=== PATIENT | female | born 1990 | race African-American/Black ===

== ENCOUNTER 2018-06-22 14:47 | Outpatient (CLI) | payer OTHER ==
--- NOTE | 2018-06-22 18:52 | ULT ---
TRANSABDOMINAL AND TRANSVAGINAL PELVIC ULTRASOUND: HISTORY: Incomplete . Evaluate for ectopic . COMPARISON: None. TECHNIQUE: Real-time, chávez-scale, color Doppler, and spectral analysis of the pelvis performed with a transabdo yasmin and transvaginal approach. FINDINGS: The uterus measures 9.6 x 6.3 x 7.8 cm. There are multiple calcified uterine fibroids. There is an empty gestational sac with a mean sac diameter of 2.87 cm. Adjacent to this, there are t wo separate cystic areas. There is a septated cyst within the right ovary, measuring 1.6 x 1.7 cm. No free fluid in the pelvis. IMPRESSION: 1. Findings diagnostic of failure with an empty gestational sac without an embryo with a m alan sac diameter of 2.87 cm. Adjacent cystic structure within the myometrium. This may reflect a re sorbing subchorionic hemorrhage. 2. Likely septated cyst of the right ovary, measuring up to 1.9 cm. 3. Multiple calcified uterine fibroids. POS: [facility]
== END 2018-06-22 14:48 | disposition home or self-care (01) ==
LOC: ULT 14:47
PROVIDERS: ATTEND Nurse Practitioner
DX: O03.4 Incomplete spontaneous abortion without complication (principal); D25.9 Leiomyoma of uterus, unspecified; N85.8 Other specified noninflammatory disorders of uterus
CPT/HCPCS: 76856

== ENCOUNTER 2019-06-22 14:36 | Outpatient (CLI) | payer BC ==
--- NOTE | 2019-06-22 15:47 | ULT ---
OB ULTRASOUND: 06/22/19 COMPARISON: None. HISTORY: female. Evaluate anatomy and dates. TECHNIQUE: Multiplanar chávez scale and color Doppler images were obtained in a transabdominal ultrasound. FINDINGS: There is a single live intrauterine . The fetus' heart rate is variable ranging from 106 to 134 beats per minute. Per the technologist, there are intermittent periods of significant bradycardia with skipped heart beats. Average age of the fetus based on today's examination is 20 weeks, 1 day. Estimated weight is 3 24 grams. A survey was performed which was unremarkable. The head, intracranial structures, he art, stomach, umbilical cord, umbilical cord insertion, spine, face, and extremities were evaluated. There is the appearance of soft tissue anasarca along the chest and abdominal wall. The rest of the s urvey is unremarkable. The placenta is anterior in location without focal abnormality. The cervix is normal in size without focal abnormality. There is no evidence of placenta previa. IMPRESSION: 1. Single live intrauterine estimated at 20 weeks, 1 day. 2. Although not recorded, the technologist reports intermittent skipped heart beats and episodes of bradycardia. 3. Possible soft tissue anasarca along the abdominal and chest wall. POS: OFF
== END 2019-06-22 14:37 | disposition home or self-care (01) ==
LOC: BICULT 14:36
PROVIDERS: ATTEND Family Medicine
DX: Z34.82 Encounter for supervision of other normal pregnancy, second trimester (principal); Z3A.20 20 weeks gestation of pregnancy
CPT/HCPCS: 76805

== ENCOUNTER 2019-09-05 10:16 | Day surgery (SDC) | payer BC ==
[2019-09-05 11:01] VITALS: BMI 32.6
[2019-09-05] MEDS ORDERED: hydrALAZINE 20 MG/ML VIAL SLOW IVP PRN (11:55)
--- NOTE | 2019-09-05 11:55 | PDOC.FPROB ---
FMR OB H&P: HPI - History of Present Illness Chief Complaint: dizziness, N/V and abodminal pain Indentification: History of Present Illness: 28YO @ 30.6 WGA who presents to L&D for evaluation for N/V with associated dizziness and abdominal and back pain. Per the patient she slept in until 11AM yesterday which is not normal for her and "just didn't feel well." However, this AM when she opened her eyes upon waking up she felt as if the room was spinning and proceeded to have ~ 4 episodes of non-bloody emesis. She denies any recent illness or URI symptoms. Also denies any diarrhea. However, she does report that after her vomiting she developed colicky "crampy" RLQ pain that she reports comes & goes & lasts ~ 45 seconds at a time. Most severe episode was 6/10 in severity. Currently rates it at a 3/10. No reported fever/ chills, dysuria or hematuria either. No recent sick contacts or sick persons at home. Primary Care Physician: Vinny FMR OB H&P: Current - Care : 6 Para: 3023 Gestational age: 30.6 FMR OB H&P: History - Past Medical History PMH: none - OB History OB History: 2 SABs 3 term SVDs - Surgical History Sx History: L rotator cuff repair - Social History Social History: Lives with fiance & 3 children. No TAD. - Family History Family History: Father- HTN FMR OB H&P: Medications - Current Home Medications: Medication Instructions Recorded Confirmed Type Prenat Vit Comb.10/Iron/FA/DHA 1 each PO DAILY 10/21/13 02/24/14 History [PNV-OB with DHA Combo Pack] Allergies/Adverse Reactions: Allergies Allergy/AdvReac Type Severity Reaction Status Date / Time No Known Allergies Allergy Verified 02/24/14 01:15 R OB H&P: ROS - Review of Systems General: reports: weight/appetite/sleep changes, fatigue. denies: fever/chills Eyes: reports: vision changes, double vision ENT: denies: nasal congestion, rhinorrhea, frequent nose bleed, ear pain Cardiovascular: denies: chest pain Respiratory: denies: cough, shortness of breath Gastrointestinal: reports: abdominal pain, nausea, vomiting. denies: diarrhea, bright red blood, dark black tarry stools Genitourinary (Female): denies: dysuria, hematuria, vaginal discharge, vaginal bleeding, contractions Musculoskeletal: reports: pain. denies: tenderness Neurologic: reports: headache. denies: loss of counsciousness Integumentary: denies: itching, rash FMR OB H&P: Vital Signs - Maternal Vital signs: BP: 111/70 HR: 69 RR:16 T: 97.7F O2 sat: 99% on RA - Heart Tones Baseline: 135 Variability: moderate Acceleration: present Deceleration: absent FMR OB H&P: Physical Exam - Physical Exam General: NAD, awake, alert and oriented HEENT: normocephalic and atraumatic, EOMI, MMM, conjunctiva clear, no scleral icterus, grossly normal vision, grossly normal hearing, oropharynx clear, good dention Neck: supple, FROM Heart: RRR, normal S1/S2, no murmurs/rubs/gallops General: CTAB, no respiratory distress, good air movement, no rales/rhonchi, no wheezing Abdomen: soft, gravid, non-tender, bowel sound present Musculoskeletal: FROM in all four extremities, other (No CVA tenderness noted) Neurological: cranial nerves II through XII intact, sensation to pain,touch and proprioception grossly normal, no focal deficit Skin: no rash, good tugor, no jaundice Lymphatic: no unusual bruising or bleeding, no purpura, no petechia Psychiatric: intact recent and remote memory, good judgement and insight, normal mood and affect FMR OB H&P: A/P - Problem List (1) Vestibular disorder Current Visit: Yes Status: Acute Code(s): H81.90 - UNSPECIFIED DISORDER OF VESTIBULAR FUNCTION, UNSPECIFIED EAR (2) Nausea & vomiting Current Visit: Yes Status: Acute Code(s): R11.2 - NAUSEA WITH VOMITING, UNSPECIFIED Disposition: 28YO @ 30.6 weeks presenting for evaluation for dizziness with associated N/V and abdominal & back pain. Vestibular instability: - Most likely viral in etiology & contributing to associated N/V. Symptoms resolved for now but will give 1x dose of SL zofran for associated N/V. Continue to monitor. N/V: - Could be 2/2 viral gastroenteritis and/or problem #1. Low concern for abdominal infectious process w/ NL VS & benign physical exam. Will check for electrolyte deficiencies & replace PRN based on results. - Will give zofran x1 & encourage PO hydration. , 3rd trimester: - Reactive strip noted. - Continue routine antepartum care w/ PCP. Dispo: Anticipate likely d/c home w/ close follow-up with PCP pending BMP results & ability to tolerate PO. Discussion: Date/Time: 09/05/19 2950 This H&P was discussed with Dr. Lares who agrees with the above documentation and plan.
[2019-09-05] MEDS ORDERED: Ondansetron ODT 4 MG TAB SL PRN (12:06)
--- NOTE | 2019-09-05 12:48 | HP ---
This is a faculty attestation. The patient is seen at bedside at approximately 1205 hours. LOCATION: Triage A. Please see Yazmin Garcia's note. HISTORY OF PRESENT ILLNESS: In brief, the patient is a 28-year-old, G6, P3, who is at 30 weeks and [address] days, who sees Dr. Casillas. She came in with new onset of dizziness and a bout of vomiting, but denies any labor symptoms. She has no vaginal bleeding or leakage of fluid. She has good movement. She denies any fever or sick contacts. She has no diarrhea or right upper quadrant pain. PAST MEDICAL HISTORY: Otherwise unremarkable. PAST SURGICAL HISTORY: Negative for any abdominal procedures. She has only had a left rotator cuff surgery. MEDICATIONS: None except vitamins. OB HISTORY: Significant for 2 previous spontaneous abortions and 3 vaginal deliveries at term. PHYSICAL EXAMINATION: VITAL SIGNS: Show a blood pressure of 111/70, pulse is 69, respirations 16 and unlabored. GENERAL: She is in no acute distress and resting comfortably in bed. PELVIC: Deferred as there is no concern for active rupture of membranes or active labor. The monitor shows heart rate of about 130 to 140 and is reactive, although she is only 30 weeks. There is no evidence of labor pattern on tocodynamometer. ASSESSMENT: This is a patient at 30 weeks and 6 days with nonspecific complaints either vasovagal episode/discomfort of or mild vestibular instability from . There is no evidence of acute maternal or compromise. PLAN: 1. BNP. 2. Zofran p.r.n. 3. P.o. hydrate. 4. As there is no acute evidence of need for intervention, we will follow labs and likely have her follow up as an outpatient. Job ID: [id number]
[2019-09-05 13:40] LABS: Anion Gap 11 mmol/L (10-20); BUN (Urea Nitrogen) 5 mg/dL (7.0-18.7); Calc. Creatinine Clearance 169 mL/min (70-130); Calcium 8.7 mg/dL (7.8-10.44); Carbon Dioxide 22 mmol/L (22-29); Chloride 106 mmol/L (98-107); Estimated GFR-MDRD Greater than 90; Glucose 71 mg/dL (70-105); Sodium 135 mmol/L (136-145)
[2019-09-05] MEDS ORDERED: Meclizine HCl 25 MG TAB PO SCH (14:00)
== END 2019-09-05 14:20 | disposition home or self-care (01) ==
LOC: L&D/OP 10:16
PROVIDERS: ATTEND Family Medicine
DX: O26.893 Other specified pregnancy related conditions, third trimester (principal); H81.90 Unspecified disorder of vestibular function, unspecified ear; R10.31 Right lower quadrant pain; O21.2 Late vomiting of pregnancy; Z3A.30 30 weeks gestation of pregnancy
CPT/HCPCS: 36415; 80048; 99283; J8597

== ENCOUNTER 2019-11-08 23:37 | Day surgery (SDC) | payer BC ==
[2019-11-09 00:09] VITALS: BMI 32.8
[2019-11-09] MEDS ORDERED: hydrALAZINE 20 MG/ML VIAL SLOW IVP PRN (00:55)
--- NOTE | 2019-11-09 01:20 | PRG ---
DATE OF SERVICE: 11/09/2019 PRIMARY OB: Dr. René Casillas. CHIEF COMPLAINT: Abdominal pain. HISTORY OF PRESENT ILLNESS: The patient is a 29-year-old G6, P3 female with an intrauterine at 40 weeks gestation today, who is presenting to Labor and Delivery with a several hour history of increasing abdominal pains. The patient reports that she is not sure if it is labor or if she is just having "false labor." She reports that up to about 10 o'clock last night, her contractions had been getting worse in intensity. She denies leakage of fluid or vaginal bleeding. She denies any fever, cough, headache, chest pain, shortness of breath. Denies nausea. Had some vomiting just prior to the intensification of her contractions earlier in the evening. Denies diarrhea, constipation, hip problems, knee problems, muscle weakness. Denies vaginal bleeding, leakage of fluid, urinary urgency or frequency. PAST MEDICAL HISTORY: Negative. PAST SURGICAL HISTORY: She has had left rotator cuff surgery. ALLERGIES: NO KNOWN DRUG ALLERGIES. MEDICATIONS: vitamins. SOCIAL HISTORY: Denies drug, alcohol, or tobacco use. OBSTETRICAL LABORATORY DATA: Blood type is A positive. Antibody screen unknown. She is rubella immune. Hepatitis B surface antigen is negative. RPR is negative. REVIEW OF SYSTEMS: Per HPI. PHYSICAL EXAMINATION: VITAL SIGNS: Blood pressure is 116/75, heart rate is 77, saturating 99% on room air. GENERAL: She appears to be in no acute distress. She is alert and oriented, cooperative, and pleasant to interact with. HEAD: Normocephalic, atraumatic. LUNGS: Clear to auscultation bilaterally. HEART: Has regular rate and rhythm. ABDOMEN: Gravid, soft, nontender. EXTREMITIES: Nontender, nonedematous. CERVICAL: Per nursing staff is 2, 70 and -2 station. heart tracing shows the fetus with a baseline in the 120s with moderate long-term variability, positive 15 x 15 accelerations, no decelerations. Tocometer showing contractions about every 5 to 6 minutes lasting for about 1 minute. ASSESSMENT AND PLAN: The patient is a 29-year-old multiparous female with an intrauterine at 40 weeks. Fetus has a category 1 tracing and reactive NST. The patient is here for evaluation of labor. Will be re-evaluating for cervical change in the next 2 to 3 hours to see if she has in active labor. If she is in active labor, patient will be admitted to the hospital under the care of Dr. Casillas. If not, patient will be discharged home. She does have an appointment Dr. Casillas tomorrow, which we have encouraged that she keep. On recheck pt had not cervical change. We did learn that the pt lived about 1hr away. She was given the option of staying longer given the long distance home. She opted to go home. Pt has an appt later today with Dr Casillas that we have encouarged she keep. Job ID: [id number] [facility]
== END 2019-11-09 02:50 | disposition home health service (06) ==
LOC: L&D/OP 23:37
PROVIDERS: ATTEND Family Medicine
DX: O47.1 False labor at or after 37 completed weeks of gestation (principal); O48.0 Post-term pregnancy; Z3A.40 40 weeks gestation of pregnancy
CPT/HCPCS: 99283

== ENCOUNTER 2019-11-12 02:24 | Inpatient (IN) | payer BC ==
[2019-11-12] MEDS ORDERED: Carboprost 250 MCG/ML AMP IM PRN (02:53)
[2019-11-12] MEDS ORDERED: Diphenoxylate HCl/Atropine Tablet PO PRN (02:53)
[2019-11-12] MEDS ORDERED: Ondansetron PF 4 MG/2 ML Vial IVP PRN ×4 (02:53→15:40)
[2019-11-12] MEDS ORDERED: Misoprostol 200 MCG TAB PR PRN (02:53)
[2019-11-12] MEDS ORDERED: Promethazine HCl 25 MG/ML VIAL IM PRN ×4 (02:53→15:40)
[2019-11-12] MEDS ORDERED: Methylergonovine 0.2 MG/ML VIAL IM PRN (02:53)
[2019-11-12] MEDS ORDERED: Lidocaine 1% (PF) 30 ML VIAL SC PRN (02:53)
[2019-11-12] MEDS ORDERED: Butorphanol Tartrate 1 MG/ML VIAL SLOW IVP PRN (02:53)
[2019-11-12] MEDS ORDERED: hydrALAZINE 20 MG/ML VIAL SLOW IVP PRN ×2 (02:53→15:40)
[2019-11-12] MEDS ORDERED: NS / Oxytocin 40 units/1000ml 1,000 ML IV PRN (02:53)
[2019-11-12 03:00] VITALS: BMI 32.8
[2019-11-12] MEDS ORDERED: Ibuprofen 800 MG TAB PO SCH (03:00)
[2019-11-12] MEDS: Lactated Ringer's 1,000 ML IV SCH ×4 (03:30→23:13)
[2019-11-12 03:42] LABS: Hemoglobin 11.2 g/dL (12.0-16.0); Mean Corpuscular HGB CONC 32.3 g/dL (32.0-36.0); Mean Corpuscular Hemoglobin 28.4 pg (27.0-31.0); Mean Corpuscular Volume 87.9 fL (78.0-98.0); Mean Platelet Volume 8.4 fL (7.4-10.4); Platelet Count 236 thou/uL (130-400); RBC Distribution Width 13.6 % (11.5-14.5); Red Blood Cell (RBC) Count 3.93 mill/uL (4.20-5.40); White Blood Cell (WBC) Count 12.6 thou/uL (4.8-10.8)
[2019-11-12 04:17] LABS: HBSAg Index 0.16 S/CO (0-0.99); Hep B Surf Ag Non-Reactive S/CO (NonReactive); Syphilis Antibody Nonreactive (Nonreactive); Syphilis Antibody Index 0.04 S/CO (<1.00 Non-Reactive)
[2019-11-12] MEDS ORDERED: Fentanyl 4 mcg/Bup 0.1% Cadd 100 ML ONE (07:36)
[2019-11-12] MEDS ORDERED: Bupivacaine 0.5% 10 ML VIAL ONE (07:37)
[2019-11-12] MEDS ORDERED: Fentanyl 100 MCG/2 ML VIAL ONE (07:37)
[2019-11-12] MEDS ORDERED: EPHEDRINE 25 MG/5 ML SYRINGE SLOW IVP PRN (08:42)
[2019-11-12] MEDS ORDERED: Bupivacaine 0.25% 10 ML VIAL EPIDURAL ONE (08:42)
[2019-11-12] MEDS ORDERED: Acetaminophen 325 MG TAB PO PRN (08:42)
[2019-11-12] MEDS ORDERED: Fentanyl 100 MCG/2 ML VIAL I-THECAL ONE (08:42)
[2019-11-12] MEDS ORDERED: Lactated Ringer's 500 ML IV PRN (08:42)
[2019-11-12] MEDS ORDERED: Naloxone HCl 0.4 mg/ml Vial IVP PRN ×4 (08:42→12:09)
[2019-11-12] MEDS ORDERED: diphenhydrAMINE 50 MG/ML VIAL IVP PRN ×2 (08:42→12:09)
[2019-11-12] MEDS ORDERED: Fentanyl 4 mcg/Bupivacaine 0.1% Cassette 100 ML EPIDURAL SCH (08:45)
[2019-11-12] MEDS ORDERED: Communication Order-Pharmacy FS SCH ×2 (08:45→12:15)
[2019-11-12] MEDS ORDERED: NS w/ Oxytocin 10 units 500 ML ONE (09:10)
[2019-11-12] MEDS ORDERED: EPHEDRINE 25 MG/5 ML SYRINGE ONE (09:26)
[2019-11-12] MEDS ORDERED: Terbutaline Sulfate 1 MG/ML VIAL ONE (11:16)
[2019-11-12] MEDS ORDERED: Bicitra 30 ML UDCUP ONE (11:29)
[2019-11-12] MEDS ORDERED: EPINEPHrine 1 MG/ML AMP ONE (11:46)
[2019-11-12] MEDS ORDERED: Lidocaine 2% 10 ML INJ ONE (11:46)
[2019-11-12] MEDS ORDERED: Oxytocin 10 UNITS/ML VIAL ONE (11:58)
[2019-11-12] MEDS ORDERED: MORPHINE 5 MG/10 ML PF VIAL ONE (11:59)
[2019-11-12] MEDS ORDERED: Ondansetron PF 4 MG/2 ML Vial ONE (12:03)
[2019-11-12] MEDS ORDERED: Naloxone HCl 0.4 mg/ml Vial IV PRN (12:09)
[2019-11-12] MEDS ORDERED: Promethazine HCl 25 MG SUPP PR PRN (12:09)
[2019-11-12] MEDS ORDERED: Ketorolac Tromethamine 30 MG/ML VIAL IVP PRN (12:09)
[2019-11-12] MEDS ORDERED: Ondansetron HCl/PF 4 MG/2 ML Vial IVP PRN (12:09)
[2019-11-12 12:29] LABS: Actual Bicarbonate (HCO3v) 24 mEq/L (22-28); Base Excess -4.2 mEq/L (-2.0 to +3.0); pH (Cord, venous) 7.26 (7.32-7.43)
--- NOTE | 2019-11-12 13:02 | PDOC.OPDEL ---
OB Operative/Delivery Note - Additional Findings/Plan Compilations/Other Findings: Procedure Note Date of Procedure: 11/12/19 Resident Surgeon: Dr. Paul العراقي Attending Surgeon: Dr. René Casillas Procedure: Primary low transverse caesarean section Preoperative Diagnosis: 1)Term intrauterine 2) labor intolerance 3) Non-Reassuring heart tones Postoperative Diagnosis: 1)same as above Anesthesia: spinal Indications: The patient is a 29 year old female at 40.3 weeks who presented with contractions and SROM. developed recurrent late decelerations which did not resolve with maneuvers. Procedure in Detail: After risks, benefits, and alternatives were explained to the patient, she gave informed consent. Pre-operative antibiotics included Cefazolin 2 gram IV. The patient was taken to the operating room and epidural anesthesia was found to be sufficient. She was placed in the supine position with a left tilt and prepped and draped in usual sterile fashion. A Pfannenstiel incision was made with a scalpel and carried down to the level of the fascia which was sharply nicked. The fascial cut was extended bilaterally with Woods scissors. The inferior and superior edges of the cut fascial edges were elevated with Fer clamps and the underlying rectus muscles were sharply and bluntly dissected free. The recti were divided digitally and retracted manually. The peritoneum was entered bluntly and retracted manually. Bladder blade was placed. A low transverse score was made with the scalpel and the uterus was entered in the midline with the scalpel. Clear fluid was seen. The hysterotomy was extended manually. The infant was noted to be vertex and was easily delivered by fundal pressure, nuchal cord x1. Mouth and nares were bulb suctioned. Cord clamped and cut and grossly normal female infant was handed to waiting nurse. Cord blood was obtained. Placenta was manually extracted, found to be intact with 3 vessel cord and discarded. The uterus was externalized and the endometrium was curetted with a dry lap. The bladder blade was replaced and the uterus was closed with a running locking 0-Vicryl. 2 figure of eight knots of 0-Vicryl were placed after this. Following this hemostasis was noted. The abdomen was irrigated with saline and suctioned free of clots. The uterus was internalized and the hysterotomy was again noted to be hemostatic. The peritoneum was closed using 3-0 vicryl in a running non-locking fashion. A small defect in the inferior fascia was repaired with 0-PDS in a running fashion. The fascia was closed with a running non-locking 0-PDS suture. The subcutaneous tissue was irrigated and there were no bleeders. The subcutaneous layer was approximated with 3 simple interrupted knots of 3-0 chromic. The skin was approximated with kevin and a pressure dressing was placed. All counts were correct. The patient tolerated the procedure well and was taken to the recovery room in stable condition. QBL: 435 Complications: None Specimens: Cord blood sent to lab for blood type. Cord gas sent. Placenta sent for path review. Findings: Grossly normal female infant. Grossly normal placenta with 3 vessel cord discarded. Drains: Gaston to gravity draining clear urine
[2019-11-12] MEDS ORDERED: Promethazine HCl 25 MG/ML VIAL ONE (13:12)
[2019-11-12] MEDS ORDERED: Metoclopramide HCl 10 MG/2 ML VIAL IVP SCH (13:30)
[2019-11-12] MEDS ORDERED: Metoclopramide HCl 10 MG/2 ML VIAL ONE (13:37)
[2019-11-12] MEDS ORDERED: Calcium Carbonate 500 MG ChewTAB PO PRN ×2 (13:48→13:49)
[2019-11-12] MEDS ORDERED: LACTATED RINGER S IVP SCH (14:00)
[2019-11-12] MEDS ORDERED: METOCLOPRAMIDE HCL IVP SCH (14:00)
[2019-11-12] MEDS ORDERED: Adacel (T-DAP) 0.5 ML SYRINGE IM ONE (15:40)
[2019-11-12] MEDS ORDERED: Lanolin Ointment 7 GM TUBE TOP PRN (15:40)
[2019-11-12] MEDS ORDERED: Bisacodyl 10 MG SUPP PR PRN (15:40)
[2019-11-12] MEDS ORDERED: Simethicone Chewable 80 MG TAB PO PRN (15:40)
[2019-11-12] MEDS ORDERED: diphenhydrAMINE 25 MG CAP PO PRN (15:40)
[2019-11-12] MEDS: Ketorolac Tromethamine 30 MG/ML VIAL IVP SCH ×2 (18:04→18:08)
[2019-11-12] MEDS: Acetaminophen 650 MG Suppository PR SCH (18:04)
[2019-11-12] MEDS: Ferrous Sulfate 325 MG TAB PO SCH (21:22)
[2019-11-12] MEDS: Docusate Calcium (SURFAK) 240 MG CAP PO SCH (21:33)
[2019-11-13] MEDS ORDERED: Meperidine HCl/PF 25 MG/ML VIAL IM PRN (00:15)
[2019-11-13] MEDS ORDERED: HYDROcodone/Acetaminophen 5/325 mg Tablet PO PRN (00:15)
[2019-11-13] MEDS: Ketorolac Tromethamine 30 MG/ML VIAL IVP SCH ×2 (00:25→05:59)
[2019-11-13] MEDS: Acetaminophen 650 MG Suppository PR SCH ×2 (00:34→05:10)
[2019-11-13 06:07] LABS: Hemoglobin 10.2 g/dL (12.0-16.0); Mean Corpuscular HGB CONC 32.7 g/dL (32.0-36.0); Mean Corpuscular Hemoglobin 28.5 pg (27.0-31.0); Mean Corpuscular Volume 87.3 fL (78.0-98.0); Mean Platelet Volume 8.2 fL (7.4-10.4); Platelet Count 195 thou/uL (130-400); RBC Distribution Width 13.9 % (11.5-14.5); Red Blood Cell (RBC) Count 3.59 mill/uL (4.20-5.40); White Blood Cell (WBC) Count 19.4 thou/uL (4.8-10.8)
[2019-11-13] MEDS: Ferrous Sulfate 325 MG TAB PO SCH ×2 (09:48→21:50)
[2019-11-13] MEDS: Prenatal Vitamin 1 TAB PO SCH (09:48)
[2019-11-13] MEDS: Docusate Calcium (SURFAK) 240 MG CAP PO SCH ×2 (09:48→21:48)
[2019-11-13] MEDS: Ibuprofen 800 MG TAB PO SCH ×2 (13:59→21:48)
[2019-11-13] MEDS: HYDROcodone/Acetaminophen 5/325 mg Tablet PO PRN ×2 (16:22→21:48)
[2019-11-13] MEDS ORDERED: Ibuprofen 800 MG TAB PO SCH (18:00)
[2019-11-14] MEDS: Ibuprofen 800 MG TAB PO SCH (05:20)
[2019-11-14] MEDS: HYDROcodone/Acetaminophen 5/325 mg Tablet PO PRN (05:21)
[2019-11-14] MEDS: Ferrous Sulfate 325 MG TAB PO SCH (08:45)
[2019-11-14] MEDS: Docusate Calcium (SURFAK) 240 MG CAP PO SCH (08:48)
[2019-11-14] MEDS: Prenatal Vitamin 1 TAB PO SCH (08:48)
[2019-11-14 11:41] VITALS: BP 117/78; TEMP 98.5
== END 2019-11-14 13:30 | disposition home or self-care (01) | DRG 788 ==
LOC: L&D/OP 02:24 → L&D 03:07 → 3SW 15:49
PROVIDERS: ADMIT Family Medicine; ATTEND Family Medicine
PROC: 10D00Z1 Extraction of Products of Conception, Low, Open Approach (ICD-10-PCS; principal; 2019-11-12)
DX: O76 Abnormality in fetal heart rate and rhythm complicating labor and delivery (principal); O99.02 Anemia complicating childbirth; D64.9 Anemia, unspecified; Z3A.40 40 weeks gestation of pregnancy; Z37.0 Single live birth
CPT/HCPCS: 36415; 51702; 82805; 85027; 86780; 86850; 86900; 86901; 87340; 88307; 99283; 99285; J0171; J0690; J1885; J2001; J2274; J2405; J2550; J2590; J2765; J3010; J3105; J3490; J7120